=== PATIENT | male | born 1990 | race Caucasian/White ===

== ENCOUNTER 2016-12-14 23:20 | Emergency (ER) | payer SELFPAY ==
[2016-12-14 23:30] VITALS: BP 154/86; BMI 36.6
[2016-12-14 23:53] LABS: BILIRUBIN,URINE 2+ (NEGATIVE); BLOOD/HEMOGLOBIN,URINE 1+ (NEGATIVE); GLUCOSE, URINE NEGATIVE (NEGATIVE); KETONES,URINE NEGATIVE (NEGATIVE); LEUKOCYTE ESTERASE ,URINE 1+ (NEGATIVE); NITRITES,URINE POSITIVE (NEGATIVE); PH,URINE 6.5 (5.0 - 8.0); PROTEIN,URINE NEGATIVE (NEGATIVE); UROBILINOGEN,URINE 3+ (NORMAL)
--- NOTE | 2016-12-14 23:54 | DR.GENAD ---
HPI - PCP Primary Care Physician: NFD - Complaint/Symptoms Chief Complaint Doctors Comments: Patient states he has been having blood in his urine for the past 2-3 days with pain in the lower part of his back. States he has had an episode in which he was unable to urinate for two days but he did not go to the doctor. States the pain is 3 of 10. He denies fever, chills, nausea or vomiting. He denies any recent trauma. States he has not local doctor and he has not taken anything for the pain. states when he have lower back pain it radiates to his testicles. He denies penile discharge or any unprotected sex. States his appetite is good and he has been urinating fine today. Chief Complaint:: BLOOD IN URINE FLANK PAIN 2 OR 3 DAYS - Nurses notes reviewed Nurses Notes Review: Yes - Source History Provided: Patient - Mode of Arrival Mode of Arrival: Ambulatory - Timing Onset of Chief Complaint: 12/12/16 Came on: Gradually - Duration Duration: Intermittent How lon Duration: Days - Location Location: low back pain - Severity Severity: Moderate - Modifying Factors Worsens:: nothing Improves:: nothing PMH - PMH Past Medical History: No Past Surgical History: No - Family History History of Family Medical Conditions: No - Social History Type of Tobacco Use: Cigarettes Does any household member use tobacco: No Alcohol Use: Occasionally Do you use any recreational Drugs:: No Lives With: Family Lives Where: Home - infectious screening In the last 2 months have you had wt loss of >10#?: NO Have you had fever, night sweats or hemotysis?: No Have you traveled outside the country in the last 6 months?: No Isolation: Standard ROS - Review of Systems Constitutional: No Symptoms Reported. negative: See HPI, Chills, Diaphoresis, Fever, Malaise, Weakness, Irritable, Fatigue, Loss of Appetite, Other Eyes: No Symptoms Reported. negative: See HPI, Eye Pain, Blurred Vision, Tearing, Discharge, Photophobia, Diplopia, Other ENTM: No Symptoms Reported Respiratoy: No Symptoms Reported. negative: See HPI, Productive Cough, Non- Productive Cough, Moist Cough, Dry Cough, Hacking Cough, Barking Cough, Brassy Cough, Orthopnea, Short of Breath, Stridor, Wheezing, Hemoptysis, Other Cardiovascular: No Symptoms Reported Gastrointestinal/Abdominal: No Symptoms Reported. negative: See HPI, Abdominal Pain, Constipation, Diarrhea, Nausea, Vomiting, Food Intolerance, Other Genitourinary: No Symptoms Reported, Dysuria, Hematuria. negative: See HPI, Discharge, Frequency, Pain, Bleeding, Other Neurological: No Symptoms Reported Musculoskeletal: No Symptoms Reported, Back (lower back pain at times ) Integumentary: No Symptoms Reported. negative: See HPI, Change in Color, Change in Hair/Nails, Dryness, Lesions, Lumps, Rash, Itching, Wound, Bruises, Juandice, Other Hematologic/Lymphatic: No Symptoms Reported Endocrine: No Symptoms Reported Psychiatric: No Symptoms Reported. negative: See HPI, Anxiety, Depression, Hallucinations, Excessive crying, Suicidal, Other PE - Vital Signs Vitals: Temperature 98 F Pulse Rate 86 Respiratory Rate 18 Blood Pressure 154/86 O2 Sat by Pulse Oximetry 98 - General Limitations: No Limitations General Appearance: Alert, In No Apparent Distress - Head Head Exam: Normal Inspection, Atraumatic, Normocephalic - Eyes Eye exam: Normal Appearance, PERRL, EOMI. negative: Scleral Icterus, Conjunctival Injection, Nystagmus, Miosis, Mydrasis, Periorbital Swelling, Periorbital Tenderness, Other - ENT ENT Exam: Normal Exam, Normal Oropharynx, Normal External Ear Exam, Mucous Membranes Moist, TM's Normal Bilaterally. negative: Mucous Membranes Dry, Other External Ear Exam: Normal External Inspection TM/Canal Exam: Bilateral Normal Nose Exam: Normal Nose Exam Mouth Exam: Normal Inspection Throat Exam: Normal Inspection - Neck Neck Exam: Normal Inspection, Full ROM, Trachea Midline. negative: Tenderness, Meningismus, Lymphadenopathy, Thyromegaly, Other - Chest Chest Inspection: Normal Inspection, Symmetric Chest Wall Rise - Respiratory Respiratory Exam: Normal Lung Sounds Bilat Respiratory Exam: Bilateral Clear to Auscultation - Cardiovascular Cardiovascular Exam: Regular Rate, Normal Rhythm, Normal Heart Sounds. negative : Bradycardia, Tachycardia, Irregular Rhythm, Systolic Murmur, Diastolic Murmur , Rubs, Gallop, Clicks, JVD, +S1, +S2, +S3, +S4, Other - Abdominal Exam Abdominal Exam: Normal Inspection, Normal Bowel Sounds, Soft. negative: Distention, Tenderness, Guarding, Rebound, Rigidity, Dimnished Bowel Sounds, Hyperactive Bowel Sounds, Hypoactive Bowel Sounds, Organomegaly, Trauma, Incision, Ascites, Mass, Bruit, Pulsatile Mass, Hernia, Other Abdominal Tenderness: negative: RUQ, RLQ, LUQ, LLQ, Epigastrium, Suprapubic, Diffuse, Mild, Moderate, Severe, Other - Extremities Extremities Exam: Normal Inspection, Full ROM, Normal Capillary Refill. negative: Tenderness, Edema, Joint Swelling, Calf Tenderness, Other - Back Back Exam: Normal Inspection, Full ROM. negative: Tenderness, (R) CVA Tenderness, (L) CVA Tenderness, Muscle Spasm, Paraspinal Tenderness, Vertebral Tenderness, Rashes, (R) Sciatic Notch Tenderness, (L) Sciatic Notch Tendern, (R ) Straight Leg Raise, (L) Straight Leg Raise, Other - Neurologic Neurological Exam: Alert, Oriented X3, CN II-XII Intact, Normal Gait, Reflexes Normal - Psychiatric Psychiatric Exam: Normal Affect, Normal Mood. negative: Depressed, Agitated, Anxious, Flat Affect, Manic, Homicidal Ideation, Suicidal Ideation, Other - Skin Skin Exam: Warm, Dry, Intact, Normal Color. negative: Rash, Cyanosis, Diaphoresis, Erythema, Pallor, Mottled, Other ROR - Labs Reviewed Laboratory Results Reviewed?: Yes (all labs and x-ray results reviewed and discussed with patient) Laboratory: Specimen Type Clean catch urine 12/14/16 23:37 Urine Color [place] (YELLOW) 12/14/16 23:37 Urine Appearance Clear (CLEAR) 12/14/16 23:37 Urine pH 6.5 (5.0 - 8.0) 12/14/16 23:37 Ur Specific [place] 1.020 (1.000-1.030) 12/14/16 23:37 Urine Protein Negative (NEGATIVE) 12/14/16 23:37 Urine Glucose (UA) Negative (NEGATIVE) 12/14/16 23:37 Urine Ketones Negative (NEGATIVE) 12/14/16 23:37 Urine Occult Blood 1+ (NEGATIVE) 12/14/16 23:37 Urine Nitrite Positive (NEGATIVE) 12/14/16 23:37 Urine Bilirubin 2+ (NEGATIVE) 12/14/16 23:37 Urine Urobilinogen 3+ (NORMAL) 12/14/16 23:37 Ur Leukocyte Esterase 1+ (NEGATIVE) 12/14/16 23:37 Urine RBC 0-3 /HPF (NEGATIVE) 12/14/16 23:37 Urine WBC 0-3 /HPF (NEGATIVE) 12/14/16 23:37 Ur Squamous Epith Cells Few /HPF (NEGATIVE) 12/14/16 23:37 Urine Bacteria Negative /HPF (NEGATIVE) 12/14/16 23:37 Ur Culture Indicated? No/not indicated 12/14/16 23:37 - Diagnosis Discharge Problem: Cystitis, acute hemorrhagic, Low back pain Urinary tract infection Qualifiers: Encounter type: initial encounter - Discharge Plan Disposition: HOME, SELF-CARE Condition: Stable Prescriptions: Ciprofloxacin HCl [CIPRO 500 MG TAB *] 500 mg PO Q12H #20 tab Ibuprofen [Motrin Tab 800 mg] 800 mg PO BID PRN #60 tab PRN Reason: Pain/Inflammation - Follow ups/Referrals Follow ups/Referrals: NFD,None [Primary Care Provider] - 3 days NIMISHA BURGER [CONSULTING PHYSICIAN] - 3 days - Instructions Instructions: Urinary Tract Infection, Back Pain, Adult, [id number], Hematuria, Adult
--- NOTE | 2016-12-15 00:23 | CT ---
CT abdomen and pelvis without contrast Indication: Hematuria. Low back pain for 2 days. Technique: Helical images through the abdomen and pelvis without contrast. Coronal and sagittal refo rmats provided. Findings: Review of bone windows shows minimal facet arthropathy and disk degenerative change caudal ly. Limited images through the lower chest show no acute abnormality. Abdomen: Within limits of a noncontrast study, the liver, gallbladder, spleen, pancreas, adrenal gla nds, stomach and small bowel are normal. The appendix and colon show no acute abnormality. Vasculatu re is free of plaque. The kidneys are normal without hydroureteronephrosis or stones seen. Pelvis: The urinary bladder and rectum are normal. Prostate gland is normal. Impression: 1. No renal stone or hydronephrosis. 2. No other significant abnormality to explain the patient's symptoms. Reported By:
[2016-12-15 00:26] LABS: APPEARANCE,URINE CLEAR (CLEAR); BACTERIA,URINE NEGATIVE /HPF (NEGATIVE); COLOR,URINE ORANGE (YELLOW); RBC,URINE 0-3 /HPF (NEGATIVE); SQUAMOUS EPITHELIAL CELL,UR FEW /HPF (NEGATIVE)
[2016-12-15] MEDS ORDERED: LEVAQUIN TAB 500 MG PO STA (00:47)
[2016-12-15] MEDS ORDERED: MOTRIN TAB 800 MG PO STA (00:48)
[2016-12-15] MEDS ORDERED: MOTRIN TAB 800 MG PO ONE (00:59)
[2016-12-15] MEDS ORDERED: LEVAQUIN TAB 500 MG ONE (00:59)
== END 2016-12-15 01:13 | disposition home or self-care (01) ==
LOC: ER 23:20
DX: N30.90 Cystitis, unspecified without hematuria (principal); N39.0 Urinary tract infection, site not specified; M54.5 Low back pain
CPT/HCPCS: 74176; 81001; 99283

== ENCOUNTER 2017-07-21 11:54 | Emergency (ER) | payer SELFPAY ==
[2017-07-21 11:58] VITALS: BP 135/79; BMI 35.9
--- NOTE | 2017-07-21 14:11 | DR.GENAD ---
HPI - PCP Primary Care Physician: NFD - Complaint/Symptoms Chief Complaint Doctors Comments: Patient states that he was putting his kids toys together for [employer] and he quess that he got a back spasm Chief Complaint:: PATIENT HE IS HAVING BACK SPASMS AND ITS BEEN HURTING ALL DAY AND HE NEEDS A WORK EXCUSE FOR TODAY. 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 - Source History Provided: Patient - Mode of Arrival Mode of Arrival: Ambulatory - Timing Onset of Chief Complaint: 07/21/17 PMH - PMH Past Medical History: No Past Surgical History: No - Family History History of Family Medical Conditions: Yes Family Medical History: Diabetes Mellitus, Cancer, Hypertension - Social History Does patient currently use any type of tobacco product: Yes Have you used tobacco products in the last 12 months: Yes Type of Tobacco Use: Cigarettes Does any household member use tobacco: No Alcohol Use: Occasionally Do you use any recreational Drugs:: No Lives With: Family Lives Where: Home - infectious screening In the last 2 months have you had wt loss of >10#?: NO Have you had fever, night sweats or hemotysis?: No Have you traveled outside the country in the last 6 months?: No Isolation: Standard ROS - Review of Systems Eyes: No Symptoms Reported ENTM: No Symptoms Reported Respiratoy: No Symptoms Reported Cardiovascular: No Symptoms Reported Gastrointestinal/Abdominal: No Symptoms Reported Genitourinary: No Symptoms Reported Neurological: No Symptoms Reported Musculoskeletal: No Symptoms Reported Integumentary: No Symptoms Reported Hematologic/Lymphatic: No Symptoms Reported Endocrine: No Symptoms Reported Psychiatric: No Symptoms Reported All Other Systems: Reviewed and Negative PE - Vital Signs Vitals: Temperature 97.0 F Pulse Rate 79 Respiratory Rate 20 Blood Pressure 135/79 O2 Sat by Pulse Oximetry 97 - General Limitations: No Limitations General Appearance: Alert, In No Apparent Distress - Head Head Exam: Normal Inspection, Atraumatic - Eyes Eye exam: Normal Appearance, PERRL, EOMI - ENT ENT Exam: Normal Exam External Ear Exam: Normal External Inspection TM/Canal Exam: Bilateral Normal Nose Exam: Normal Nose Exam Mouth Exam: Normal Inspection Throat Exam: Normal Inspection - Neck Neck Exam: Normal Inspection, Full ROM - Chest Chest Inspection: Normal Inspection, Symmetric Chest Wall Rise - Respiratory Respiratory Exam: Normal Lung Sounds Bilat Respiratory Exam: Bilateral Clear to Auscultation - Cardiovascular Cardiovascular Exam: Regular Rate, Normal Rhythm - Abdominal Exam Abdominal Exam: Normal Inspection, Normal Bowel Sounds Abdominal Tenderness: negative: RUQ, RLQ, LUQ, LLQ, Epigastrium, Suprapubic, Diffuse, Mild, Moderate, Severe, Other - Extremities Extremities Exam: Normal Inspection, Full ROM - Back Back Exam: Normal Inspection, Full ROM - Neurologic Neurological Exam: Alert, Oriented X3, CN II-XII Intact - Psychiatric Psychiatric Exam: Normal Affect - Skin Skin Exam: Warm, Dry Course - Reevaluation 1st: Improved - Diagnosis Discharge Problem: History of muscle spasm - Discharge Plan Condition: Stable - Follow ups/Referrals Follow ups/Referrals: NFD,None [Primary Care Provider] - 3 days - Instructions
== END 2017-07-21 14:25 | disposition home or self-care (01) ==
LOC: ER 12:11
DX: M62.830 Muscle spasm of back (principal)
CPT/HCPCS: 99281